=== PATIENT | male | born 1975 | race Caucasian/White ===

== ENCOUNTER 2019-02-21 10:24 | Outpatient (RCR) | payer SELFPAY | END 2019-02-21 19:00 | disposition home or self-care (01) | LOC: PT 10:24 | PROVIDERS: Family Provider Family Medicine; PCP Family Medicine | DX: S39.012A Strain of muscle, fascia and tendon of lower back, initial encounter (principal) ==

== ENCOUNTER → 2019-03-18 07:27 | Outpatient (CLI) | payer OTHER, SELFPAY ==
[2019-02-21 11:21] VITALS: BMI 23.0
--- NOTE | 2019-03-18 07:30 | MRI_ITS ---
STUDY: MRI BRAIN WITH AND WITHOUT CONTRAST (ATTENTION INTERNAL AUDITORY CANALS - I.A.C.'s) REASON FOR EXAM: Male, 44 years old. unilat tinnitus left, right frontal headaches, hearing loss TECHNIQUE: Standardized multiplanar fat and water weighted pulse sequences were obtained. 19 IV Dotarem was administered for the contrast portion of the examination. COMPARISON: None. FINDINGS: Normal bilateral temporal bones. Normal bilateral internal auditory canals. There is no demonstrated intracanalicular or cisternal vestibular schwannoma (acoustic neuroma). There is no enhancement of the bilateral VIIth or VIIIth cranial nerves. Normal bilateral cochlea, vestibules and semicircular canals. Normal size of the ventricles and extra-axial spaces for the patient's age. Normal white matter tracts of the supratentorial brain. Normal bilateral basal ganglia. Normal thalami. Normal flow voids within the major intracranial circulation suggesting patency by spin echo criteria. Normal venous enhancement. There is no enhancing intra-axial or extra-axial abnormality. There is no extra-axial fluid accumulation. Normal sella turcica, pituitary gland, infundibular stalk, optic chiasm and hypothalamus. Normal tectal plate and pineal gland. Normal midbrain, yessi and medulla. Normal cerebellum. Normal basal cisterns. No demonstrated orbital abnormality, within the constraints of a routine brain study. Normal visualized paranasal sinuses. Normal calvarium and skull base. Normal visualized soft tissue structures. Normal visualized upper cervical spine. MRI/Brain W/WO Contrast IMPRESSION: Unremarkable unenhanced and enhanced MRI of the bilateral internal auditory canals (I.A.C's). Electronically Signed: Libertad Jimenes MD at 16:04 EDT Tel , Service support ,
== END ==
LOC: MRI 07:28
PROVIDERS: Family Provider Family Medicine; PCP Family Medicine; Referring Provider Otolaryngology Otolaryngology/Facial Plastic Surgery; Visit Provider Otolaryngology Otolaryngology/Facial Plastic Surgery
DX: H93.12 Tinnitus, left ear (principal)
CPT/HCPCS: 70553; A9575

== ENCOUNTER → 2019-12-29 08:24 | Outpatient (CLI) | payer OTHER, SELFPAY ==
[2019-12-29 08:12] VITALS: BMI 24.4
--- NOTE | 2019-12-29 08:25 | RAD_ITS ---
STUDY: X-RAY - LEFT ELBOW REASON FOR EXAM: Male, 44 years old. Bilateral elbow pain, no trauma TECHNIQUE: 3 view(s) of the elbow. COMPARISON: None. FINDINGS: Normal visualized humerus, radius and ulna. Normal radiocapitellar and ulnotrochlear articulations. The soft tissue structures are unremarkable. RAD/Elbow min 3 Views IMPRESSION: Normal x-ray examination of the elbow. Electronically Signed: Rajan Lopez, at 8:57 EDT , Service support ,
--- NOTE | 2019-12-29 08:25 | RAD_ITS ---
STUDY: X-RAY - RIGHT ELBOW REASON FOR EXAM: Male, 44 years old. Bilateral elbow pain, no trauma TECHNIQUE: 3 view(s) of the elbow. COMPARISON: None. FINDINGS: Normal visualized humerus, radius and ulna. Normal radiocapitellar and ulnotrochlear articulations. The soft tissue structures are unremarkable. RAD/Elbow min 3 Views IMPRESSION: Normal x-ray examination of the elbow. Electronically Signed: Rajan Lopez, at 8:57 EDT , Service support ,
== END ==
LOC: HPRAD 08:25
PROVIDERS: PCP Family Medicine; Referring Provider Orthopaedic Surgery; Visit Provider Orthopaedic Surgery
DX: M25.521 Pain in right elbow (principal); M25.522 Pain in left elbow
CPT/HCPCS: 73080

== ENCOUNTER 2020-07-28 10:49 | Emergency (ER) | payer OTHER, SELFPAY ==
[2020-07-28 10:49] VITALS: BP 153/96; PULSE 76; RESP 18; TEMP 36.6; O2SAT 98; BMI 25.7
--- NOTE | 2020-07-28 11:00 | ED.DCSUM_ITS ---
- ER Visit Summary Date of Service: 07/28/20 Chief Complaint: Headache History of Present Illness: The patient is a 45 M presenting with headache. Patient states that he gets cluster headaches frequently. This headache started today gradually. It feels similar to his previous headaches. He has been hav ing frequent headaches over the past 3 months. He typically takes Imitrex and is on home O2. He states he has run out of these medications. He denies fever or cough. Denies other complaints. Physical Examination: Vitals are stable. Patient is afebrile. Alert no acute distress. HEENT exam is unremarkable. Neck is supple. No meningismus Lungs are clear and equal bilaterally. Heart is regular rate and rhythm. Extremities are unremarkable. Skin is warm and dry. No focal neurologic deficit. Remainder of exam is unremarkable. Emergency Department Course and Treatment: Patient was put on nasal cannula oxygen. He is given Compazine, Benadryl, Toradol. On reevaluation, he has improvement of his symptoms. He is advised to follow-up with his primary care physician. Advised return to the ED for worsening complaints. Disposition: Discharge home Impression: Cluster headache This note was generated with [employer] dictation software. It may contain incorrect words, spelling, and punctuation that were not noted in review of the chart prior to signing ED Disposition - Plan for ED Patient: Instructions: ED Headache, Cluster Referrals: Eron Ervin DO [Primary Care Provider] -
[2020-07-28] MEDS: proCHLORPERazine 10 MG/2 ML Vial IV (11:25)
[2020-07-28] MEDS: Ketorolac 30 MG/ML Syringe IV (11:25)
[2020-07-28] MEDS: DiphenhydrAMINE 50 MG/ML Syringe 25 MG IV (11:25)
--- NOTE | 2020-07-28 11:58 | ED.DEP ---
ED Disposition - Plan for ED Patient: Instructions: ED Headache, Cluster Referrals: Eron Ervin DO [Primary Care Provider] -
[2020-07-28 12:09] VITALS: BP 130/78; PULSE 56; RESP 15
== END 2020-07-28 12:10 | disposition home or self-care (01) ==
LOC: ED 11:26
PROVIDERS: Emergency Provider Emergency Medicine; PCP Family Medicine
DX: G44.009 Cluster headache syndrome, unspecified, not intractable (principal); Z99.81 Dependence on supplemental oxygen; Z72.0 Tobacco use
CPT/HCPCS: 96374; 96375; 99284; A4216

== ENCOUNTER → 2020-08-28 16:59 | Outpatient (CLI) | payer OTHER, SELFPAY ==
--- NOTE | 2020-08-28 17:05 | MRI_ITS ---
STUDY: MRI BRAIN WITHOUT CONTRAST REASON FOR EXAM: Male, 45 years old. R sided horners syndrome, cluster headaches X 4 months TECHNIQUE: Standardized multiplanar fat and water weighted pulse sequences were obtained. COMPARISON: 03/18/2019 FINDINGS: Normal size of the ventricles and extra-axial spaces for the patient''s age. Normal white matter tracts of the supratentorial brain. Normal bilateral basal ganglia. Normal thalami. There is no extra-axial fluid accumulation. Normal flow voids within the major intracranial circulation suggesting patency by spin echo criteria. Normal sella turcica, pituitary gland, infundibular stalk, optic chiasm and hypothalamus. Normal tectal plate and pineal gland. Normal midbrain, yessi and medulla. Normal cerebellum. Normal basal cisterns. Normal bilateral temporal bones. Normal bilateral internal auditory canals. There appears to be a cholesterol cyst in the right petrous apex of uncertain clinical significance No demonstrated orbital abnormality, within the constraints of a routine brain study. There is prominent opacification of left maxillary sinus and mild mucosal thickening in the right. There is also mild mucosal thickening of the ethmoid air cells.. Normal calvarium and skull base. Normal visualized soft tissue structures. Normal visualized upper cervical spine. 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 Brain is otherwise within normal limits. Bilateral maxillary and ethmoid sinus disease. Electronically Signed: Dwayne Olson MD at 20:02 EST , Service support ,
== END ==
PROVIDERS: PCP Family Medicine
DX: G44.009 Cluster headache syndrome, unspecified, not intractable (principal); G90.2 Horner's syndrome
CPT/HCPCS: 70551

== ENCOUNTER → 2020-09-25 15:45 | Outpatient (CLI) | payer OTHER, SELFPAY | PROVIDERS: PCP Family Medicine; Referring Provider Otolaryngology; Visit Provider Otolaryngology | DX: Z11.59 Encounter for screening for other viral diseases (principal) | CPT/HCPCS: 87635; C9803; U0003 ==

== ENCOUNTER → 2020-10-14 | Outpatient (CLI) | payer OTHER, SELFPAY | END | disposition home or self-care (01) | LOC: LABSPEC 15:17 | PROVIDERS: PCP Family Medicine; Referring Provider Otolaryngology; Visit Provider Otolaryngology | DX: J32.9 Chronic sinusitis, unspecified (principal) | CPT/HCPCS: 87070; 87077; 87186; 87205 ==

== ENCOUNTER 2021-11-05 07:02 | Outpatient (CLI) | payer OTHER, SELFPAY ==
[2021-11-05 10:19] LABS: Absolute Lymphocyte Count 2.45 X10^3/uL (0.83-4.51); Absolute Neutrophil Count 3.5 X10^3/uL (2.0-7.7); Basophil# 0.12 X10^3/uL; Basophil% 1.7 % (0-1); Eosinophil# 0.37 X10^3/uL; Eosinophils% 5.1 % (0-5); Hematocrit 48.1 % (40-54); Hemoglobin 16.5 g/dL (13.0-16.5); Lymphocyte # 2.45 X10^3/ul (0.83-4.51); Mean Corp Hgb Conc 34.3 g/dL (32-36); Mean Corpuscular Hgb 34.7 pg (27.0-32.0); Mean Corpuscular Volume 101.3 fL (80-94); Mean Platelet Vol. 9.2 fl (6.2-12.0); Monocyte# 0.72 X10^3/uL; NRBC Flagged by Analyzer 0 % (0-5); Neutrophil # 3.52 X10^3/uL (2.7-7.7); Neutrophil % 48.9 % (47-70); Platelet Count 342 K/mm3 (150-450); RBC Distribution Width CV 13.8 % (11.6-14.6); Red Blood Count 4.75 M/mm3 (4.6-6.2); White Blood Count 7.2 K/mm3 (4.4-11.0)
[2021-11-05 10:30] LABS: Vitamin D,25 Hydroxy 26.7 ng/mL
[2021-11-05 10:43] LABS: AST(SGOT) 15 U/L (15-37); Alanine Aminotransfer ALT/SGPT 24 U/L (16-61); Albumin, Serum 3.8 g/dL (3.2-5.0); Alkaline Phosphatase 74 U/L (45-117); Anion Gap 9 (5-15); BUN 12 mg/dL (7-18); BUN/Creat Ratio 13.9 RATIO (10-20); Calcium,Total 9.6 mg/dL (8.5-10.1); Chloride 106 mmol/L (98-107); Cholesterol 165 mg/dL (200); Creatinine, Serum 0.86 mg/dL (0.70-1.30); EST Glomerular Filtration Rate 101 mL/min (>60); Est Glom Filt Rate - Afr Amer 122 mL/min (>60); Globulin 3.9 g/dL (2.2-4.2); Glucose 104 mg/dL (74-106); High Density Lipoprotein 42 mg/dL; Magnesium 2.4 mg/dL (1.6-2.6); Protein, Total 7.7 g/dL (6.4-8.2); Sodium Level 135 mmol/L (136-145); Triglycerides 92 mg/dL; Very Low Density Lipoprotein 18 mg/dL (5-40)
== END 2021-11-05 23:59 | disposition home or self-care (01) ==
LOC: MTLAB 07:04
PROVIDERS: PCP Family Medicine; Referring Provider Family Medicine; Visit Provider Family Medicine
DX: Z00.00 Encounter for general adult medical examination without abnormal findings (principal); R25.2 Cramp and spasm; R53.83 Other fatigue; E55.9 Vitamin D deficiency, unspecified
CPT/HCPCS: 36415; 80053; 80061; 82306; 83735; 84402; 84403; 85025

== ENCOUNTER 2023-11-19 05:05 | Emergency (ER) | payer OTHER, SELFPAY ==
[2023-11-19 05:06] VITALS: BP 152/81; PULSE 75; RESP 16; TEMP 36.4; O2SAT 96; BMI 25.4
[2023-11-19 05:21] VITALS: O2SAT 100
[2023-11-19] MEDS: 0.9% Normal Saline (1000mL) 1,000 ML 1000 ML IV (05:23)
[2023-11-19] MEDS: Ketorolac 30 MG/ML Syringe IV (05:24)
[2023-11-19] MEDS: Metoclopramide 10 MG/2 ML Vial IV (05:25)
[2023-11-19] MEDS: DiphenhydrAMINE 50 MG/ML Syringe 25 MG IV (05:26)
[2023-11-19 06:08] LABS: Anion Gap 3 (5-15); BUN 8 mg/dL (7-18); BUN/Creat Ratio 9.6 RATIO (10-20); Calcium,Total 9.9 mg/dL (8.5-10.1); Chloride 106 mmol/L (98-107); Creatinine, Serum 0.84 mg/dL (0.70-1.30); EST Glomerular Filtration Rate 104 mL/min (>60); Est Glom Filt Rate - Afr Amer 125 mL/min (>60); Estimated Creatinine Clearance 116.76 ml/min; Glucose 105 mg/dL (74-106); Sodium Level 140 mmol/L (136-145)
[2023-11-19] MEDS: 0.9% Normal Saline (1000mL) 1,000 ML 150 ML IV (06:11)
--- NOTE | 2023-11-19 06:20 | EX.ED.DYSGE1 ---
HPI History of Present Illness Chief Complaint: Headache Informant: patient Onset/Context/Timing Onset: Weeks Narrative Narrative: Patient presents secondary to cluster headaches. He is has a history of cluster headaches and states this particular bout of episodes started 2 weeks ago. He has had nausea and vomiting with the severe headaches over the past week. No fever or chills. No recent head injury. Patient states has been taking sumatriptan on a regular basis without much improvement. He did take his last dose tonight. [facility] Medical History Back pain Infected sebaceous cyst of skin Sebaceous cyst Home Medications etodolac 500 mg tablet 500 mg PO BID #60 tabs 12/09/22 [Rx Last Taken Unknown] loratadine 10 mg tablet (Claritin) 10 mg PO DAILY 12/09/22 [History Last Taken Unknown] omeprazole 40 mg capsule,delayed release 40 mg PO 12/09/22 [History Last Taken Unknown] tizanidine 4 mg capsule (Zanaflex) 4 mg PO Q8H PRN muscle spasticity #30 caps 10/21/23 [Rx Last Taken Unknown] diphenhydramine HCl 50 mg tablet (Benadryl Allergy) 50 mg PO TID PRN headache #14 tabs 11/19/23 [Rx Last Taken Unknown] ketorolac 10 mg tablet 10 mg PO Q8H PRN pain 4 days #12 tabs 11/19/23 [Rx Last Taken Unknown] metoclopramide HCl 10 mg tablet (Reglan) 10 mg PO Q6H PRN nausea and vomiting #14 tabs 11/19/23 [Rx Last Taken Unknown] prednisone 10 mg tablet 10 mg PO DAILY #63 tabs 11/19/23 [Rx Last Taken Unknown] Allergy/AdvReac Type Severity Reaction Status Date / Time No Known Allergies Allergy Verified 10/21/23 10:37 Surgical History History of carpal tunnel surgery of right wrist S/P laparoscopic cholecystectomy S/P radical unilateral orchiectomy S/P right knee surgery Social History Smoking Status: Current every day smoker tobacco type: cigarettes alcohol intake: current ROS ROS ED Constitutional Constitutional ED: Denies chills or fever(s) Eyes Eyes: Reports other Details: Mild light sensitivity ; Denies discharge from eye(s) ENT ENT ED: Denies discharge from eye(s), rhinorrhea or sore throat Cardiovascular Cardiovascular: Denies chest pain or palpitations Respiratory/Chest Respiratory/Chest: Denies cough or dyspnea Gastrointestinal Gastrointestinal: Reports nausea and vomiting; Denies abdominal pain Genitourinary Genitourinary ED: Denies dysuria Musculoskeletal Musculoskeletal: Reports neck pain; Denies back pain or extremity pain Integumentary Denies Abrasions or rash Neurologic Neurologic: Reports headache(s); Denies weakness Psychiatric Psychiatric: Denies anxiety or depression Allergic/Immunologic Allergic/Immunologic ED: Denies lip swelling or urticaria EXAM Physical Exam Const Vital Signs: 11/19/23 05:06 11/19/23 05:21 Temperature 97.6 F L Temperature Source Oral Pulse Rate 75 Respiratory Rate 16 Blood Pressure 152/81 H Blood Pressure Mean 104 Pulse Ox 96 100 Oxygen Delivery Method Room Air Non-Rebreather Positive well nourished and well developed General Appearance ED: well developed HEENT Reports moist mucous membranes Eyes EOMs intact bilaterally Neck no lymphadenopathy Neck Narrative: No meningismus. Chest Wall inspection of chest normal and palpation of chest normal Resp normal respiratory effort and clear to auscultation bilaterally Cardio regular rate and regular rhythm GI non-tender Palpation: soft Neuro oriented x3 Neuro Narrative: No focal neurologic deficit. Psych mental status grossly normal Skin no rashes or lesions noted MDM MDM MDM Narrative Medical decision making narrative: Patient is placed on oxygen with nonrebreather mask. IV line initiated. Labwork obtained to evaluate for leukocytosis, anemia, and electrolyte derangement. Patient given Toradol, Reglan, Benadryl, and IV fluids. History & Record Review Discussion w/independent historian: Patient and Family Lab Data Attestation: I reviewed the patient's lab results. Labs: Laboratory Results - last 24 hr 11/19/23 05:23 WBC 10.0 RBC 4.96 Hgb 16.8 H Hct 48.7 MCV 98.2 H MCH 33.9 H MCHC 34.5 RDW Std Deviation 46.2 H RDW Coeff of April 12.9 Plt Count 359 MPV 9.2 Immature Gran % (Auto) 0.200 Neut % (Auto) 60.2 Lymph % (Auto) 28.6 Griggs % (Auto) 7.2 Eos % (Auto) 3.0 Baso % (Auto) 0.8 Absolute Neuts (auto) 6.1 Absolute Lymphs (auto) 2.87 Nucleated RBC % 0 Sodium 140 Potassium 4.0 Chloride 106 Carbon Dioxide 31.0 Anion Gap 3 L BUN 8 Creatinine 0.84 Estim Creat Clear Calc 116.76 Est GFR (MDRD) Af Amer 125 Est GFR (MDRD) Non-Af 104 BUN/Creatinine Ratio 9.6 L Glucose 105 Calcium 9.9 Treatment and Re-Evaluation :: White blood cell count is 10.0 with no left shift. Hemoglobin slightly concentrated at 16.8. Chemistry studies unremarkable. On repeat evaluation patient states his headaches improved about a 5 but is starting to slightly worsen again. He is up and ambulating to the restroom without difficulty. We discussed placing the patient on a steroid taper to see if this would help as well. He will be given 60 mg of p.o. prednisone here and I will write her prescription for taper. I will also write him a prescription for Toradol, Reglan, Benadryl that he can use at home to help with headache. I will refer him to local neurology to be reevaluated secondary to increased frequency of headaches. Return instructions given. Discharge Plan Triage Chief Complaint: Headache ED Provider: Ally Ballesteros Dx/Rx/DC Orders Clinical Impression: Cluster headache Instructions: ED Headache, Cluster Prescriptions: New prednisone 10 mg tablet 10 mg PO DAILY Qty: 63 0RF Rx Instructions: 60mg po daily for 3 days, 50mg po daily for 3 days, 40mg po daily for 3 days, 30mg po daily for 3 days, 20mg po daily for 3 days, 10mg po daily for 3 days. ketorolac 10 mg tablet 10 mg PO Q8H PRN (Reason: pain) 4 Days Qty: 12 0RF metoclopramide HCl [Reglan] 10 mg tablet 10 mg PO Q6H PRN (Reason: nausea and vomiting) Qty: 14 0RF Benadryl Allergy 50 mg tablet 50 mg PO TID PRN (Reason: headache) Qty: 14 0RF No Action loratadine [Claritin] 10 mg tablet 10 mg PO DAILY omeprazole 40 mg capsule,delayed release(DR/EC) 40 mg PO Patient Comments: take 1 capsule by mouth once daily etodolac 500 mg tablet 500 mg PO BID Qty: 60 0RF tizanidine [Zanaflex] 4 mg capsule 4 mg PO Q8H PRN (Reason: muscle spasticity) Qty: 30 0RF Primary Care Provider: Eron Ervin Referrals: Eron Ervin DO [Primary Care Provider] - Elder Bahena MD [Non-Staff -Ordering Privileges] - As Needed Activity Restrictions/Additional Instructions: I have written you a prednisone taper. I have also written you a prescription for ketorolac, Reglan, and Benadryl. This is the combination used to help treat your headache in the emergency room. If you are taking ketorolac, please do not take etodolac with this. You can take 1 or the other. Disposition Disposition: Home, Self Care
[2023-11-19 06:41] LABS: Absolute Lymphocyte Count 2.87 X10^3/uL (0.83-4.51); Absolute Neutrophil Count 6.1 X10^3/uL (2.0-7.7); Basophil# 0.08 X10^3/uL; Basophil% 0.8 % (0-1); Hematocrit 48.7 % (40-54); Hemoglobin 16.8 g/dL (13.0-16.5); Lymphocyte # 2.87 X10^3/ul (0.83-4.51); Lymphocyte % 28.6 % (19-41); Mean Corp Hgb Conc 34.5 g/dL (32-36); Mean Corpuscular Hgb 33.9 pg (27.0-32.0); Mean Corpuscular Volume 98.2 fL (80-94); Mean Platelet Vol. 9.2 fl (6.2-12.0); Monocyte# 0.72 X10^3/uL; Monocyte% 7.2 % (0-10); NRBC Flagged by Analyzer 0 % (0-5); Neutrophil # 6.05 X10^3/uL (2.7-7.7); Neutrophil % 60.2 % (47-70); Platelet Count 359 K/mm3 (150-450); RBC Distribution Width CV 12.9 % (11.6-14.6); RBC Distribution Width SD 46.2 fl (35.1-43.9); Red Blood Count 4.96 M/mm3 (4.6-6.2)
[2023-11-19 07:06] VITALS: BP 144/74; PULSE 89; RESP 16; O2SAT 99
[2023-11-19] MEDS: predniSONE 20 MG Tablet 60 MG PO (07:12)
[2023-11-19 07:22] VITALS: BP 144/76; PULSE 89; RESP 16; TEMP 36.7; O2SAT 100
== END 2023-11-19 07:23 | disposition home or self-care (01) ==
PROVIDERS: Emergency Provider Emergency Medicine; PCP Family Medicine; Visit Provider Emergency Medicine
DX: G44.009 Cluster headache syndrome, unspecified, not intractable (principal); F17.210 Nicotine dependence, cigarettes, uncomplicated
CPT/HCPCS: 80048; 85025; 96361; 96374; 96375; 99283; J7030; A4216